=== PATIENT | female | born 1995 | race Caucasian/White ===

== ENCOUNTER → 2017-09-03 | Outpatient (CLI) | payer OTHER | END | disposition home or self-care (01) | LOC: C.LABSPEC 13:37 | PROVIDERS: ATTEND Obstetrics & Gynecology | DX: Z34.01 Encounter for supervision of normal first pregnancy, first trimester (principal) ==

== ENCOUNTER → 2017-09-09 | Outpatient (CLI) | payer OTHER ==
[2017-09-09 14:37] LABS: BASO % 0.2 %; BASO ABS # 0.02 K/uL (0-0.2); EOS % 0.1 %; EOS ABS # 0.01 K/uL (0-0.5); HEMATOCRIT 36.5 % (37-47); HEMOGLOBIN 12.7 g/dL (12.0-16.0); IG# 0.02 K/uL (0.00-0.02); LYMPH % 20.1 %; LYMPH ABS # 2.05 K/uL (1.2-3.4); MEAN CELL VOLUME 80.9 fL (80-100); MEAN CORPUSCULAR HEMOGLOBIN 28.2 pg (25-34); MEAN CORPUSCULAR HGB CONC 34.8 g/dl (32-36); MEAN PLATELET VOLUME 10.2 fL (7.4-10.4); MONO % 7.2 %; MONO ABS # 0.74 K/uL (0.11-0.59); NEUT % 72.2 %; NEUT ABS # 7.38 K/uL (1.4-6.5); PLATELET COUNT 344 K/uL (130-400); RED CELL DISTRIBUTION WIDTH CV 14.4 % (11.5-14.5); RED CELL DISTRIBUTION WIDTH SD 42.2 fL (36.4-46.3); WHITE BLOOD COUNT 10.22 K/uL (4.8-10.8)
== END | disposition home or self-care (01) ==
LOC: C.LAB1850 12:44
PROVIDERS: ATTEND Obstetrics & Gynecology
DX: Z34.01 Encounter for supervision of normal first pregnancy, first trimester (principal)

== ENCOUNTER → 2017-09-09 | Outpatient (CLI) | payer OTHER | END | disposition home or self-care (01) | LOC: C.PAPS 16:07 | PROVIDERS: ATTEND Obstetrics & Gynecology | DX: Z12.4 Encounter for screening for malignant neoplasm of cervix (principal) ==

== ENCOUNTER → 2017-10-30 | Outpatient (CLI) | payer OTHER, BC | END | disposition home or self-care (01) | LOC: C.LAB1850 12:06 | PROVIDERS: ATTEND Obstetrics & Gynecology | DX: Z34.02 Encounter for supervision of normal first pregnancy, second trimester (principal); Z3A.00 Weeks of gestation of pregnancy not specified ==

== ENCOUNTER → 2018-01-28 | Outpatient (CLI) | payer BC | END | disposition home or self-care (01) | LOC: C.LAB 17:18 | PROVIDERS: ATTEND Obstetrics & Gynecology | DX: Z34.03 Encounter for supervision of normal first pregnancy, third trimester (principal) ==

== ENCOUNTER 2022-07-04 17:34 | Inpatient (IN) ==
[2022-07-04] MEDS ORDERED: LIDOCAINE 1% LOCAL 20 ML VIAL INFIL PRN (17:56)
[2022-07-04] MEDS ORDERED: LACTATED RINGER'S 1,000 ML IV PRN (17:56)
[2022-07-04] MEDS ORDERED: OXYTOCIN 30 UNITS/500 ML BAG IV PRN ×2 (17:56→21:04)
--- NOTE | 2022-07-04 18:00 | History & Physical Report ---
Date of Service July 04, 2022 Assessment & Plan (1) GBS carrier: (2) with 39 completed weeks gestation: (3) Normal labor: Plan admit, gbs positive so will treat toshia. epidural now. fetus category one. anticipate . History of Present Illness Chief Complaint: contractions Primary Care Provider: Alexis Barahona PA-C Patient is a with iup at 39 2/7 weeks who presents to labor and delivery complaining of worsening contractions over the last 5 hours. no lof/vb. Good Fm and Delivery Plans COVID POSITIVE 04/20/22 WITH HOME TEST, PCR TO BE DONE (SX STARTED 04/17/22) PCR positive 04/23--test result on line and seen by physician--dein GBS on urine culture *treat in labor OB Labs: Blood Type B Positive 11/27/21 Antibody Screen NEGATIVE 11/27/21 Hemoglobin 11.7 g/dl (12.0-16.0) L 04/29/22 Hematocrit 34.6 % (34.1-44.9) 04/29/22 Mean Corpuscular Volume 82.7 fL (80-100) 11/27/21 Platelet Count 397 K/uL (130-400) 11/27/21 Rubella IgG Antibody Immune (Immune) 11/27/21 Rapid Plasma Reagin Nonreactive (Nonreactive) 11/27/21 Hepatitis B Surface Antigen NEG (NEG) 09/09/17 Hepatitis B Surface Antigen. NON-REACTIVE (NON-REACTIVE) 11/27/21 Hepatitis C Antibody (EIA) NON-REACTIVE (NON-REACTIVE) 11/27/21 HIV (1&2) Ab and P24 Ag, 4th Gener NEG (NEG) 09/09/17 HIV (1&2) Ag and Ab Confirmation NON-REACTIVE (NON-REACTIVE) 11/27/21 Glucose 1 Hour 50 gm Load 133 mg/dl (70-130) H 01/22/22 OB Optional Labs: Chlamydia trachomatis RNA NOT DETECTED (NOT DETECTED) 11/27/21 Neisseria gonorrhoeae RNA NOT DETECTED (NOT DETECTED) 11/27/21 Labs Reviewed: Declines cf/sma--mln Declines cfdna--mln gbs + Allergies Allergy/AdvReac Type Severity Reaction Status Date / Time No Known Allergies Allergy Verified 07/03/22 16:34 Home Medications Medication Instructions Recorded Confirmed Type prenat.vits,yaneth,zxh-xcrx-jdqji 1 tab PO DAILY 11/20/21 07/03/22 History Patient History Medical History History of chicken pox Iron deficiency anemia Surgical History History of repair of ACL S/P wisdom tooth extraction Family History Mother Breast cancer Denies family history of Ovarian cancer Colorectal cancer Social History Smoking Status: Never smoker Hx Alcohol Use: No Hx Substance Use: No Preferred Language: Swiss Communication Ability: Effective Beliefs That Will Affect Care: None marital status: marital status details: Jarad Vazquez (28) [phone] Current Living Situation: Spouse and Family Current Living Situation Comment: lives with spouse, son, dog, fish, cat-spouse changing litter current occupational status: employed 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 Date GA wks Lbr Lgth wt Sex Type del Anes Place Del Prov ? Com ment 04/16/18 40 7-13 M Epidural [facility] Dr. Hoyt No 11/21/20 Aborted-Spontaneous 06/26/21 Aborted-Spontaneous [employer] History noncontributory Physical Exam Constitutional: WD/WN, vitals as above Gastrointestinal (Abdomen): soft, gravid, nt Psychiatric: A+Ox3, euthymic affect Genitourinary: cx--6-7/100/-2, bulging bag toco--q3-5min efm--140s wtih mod variability, accels to 160s, no decels. Results & Data ([facility]) Vital Signs (Past 12 Hours) Vital Signs Temp Pulse Resp BP 07/04/22 17:51 71 137/82 07/04/22 17:49 22 07/04/22 17:49 36.5 C 22 07/04/22 17:48 73 145/92 H Code Status & VTE Plan VTE Prophylaxis Plan VTE Prophylaxis will be ordered: No Coding Level of Care Code None Diagnoses GBS carrier Z22.330 with 39 completed weeks gestation Z3A.39 Normal labor O80; Z37.9
[2022-07-04] MEDS ORDERED: PENICILLIN G POTASSIUM 6 MU in DEXTROSE 5% 250 ML IV STA (18:05)
[2022-07-04 18:30] LABS: Hematocrit (blood only) 41.6 % (34.1-44.9); Hemoglobin 14.6 g/dl (12.0-16.0); Mean Corpuscular Hemoglobin 30.8 pg (25.0-34.0); Mean Corpuscular Hgb Conc 35.1 g/dL (32.0-36.0); Mean Corpuscular Volume 87.8 fL (80.0-100.0); Mean Platelet Volume 12.3 fL (9.4-12.3); Platelet Count 201 K/uL (130-400); RDW Coefficient of Variation 13.6 % (11.5-14.5); RDW Standard Deviation 43.8 fL (36.4-46.3); Red Blood Count 4.74 M/uL (3.93-5.22); White Blood Count 10.53 K/ul (4.8-10.8)
[2022-07-04] MEDS ORDERED: BUPIVACAINE 0.25% 30 ML VIAL ONE (18:32)
[2022-07-04] MEDS ORDERED: fentaNYL citrate 100 MCG/2 ML VIAL ONE (18:32)
[2022-07-04] MEDS ORDERED: SODIUM CHLORIDE 0.9% INJ 10 ML VIAL ONE (18:32)
[2022-07-04] MEDS ORDERED: LIDOCAINE 2%/EPINEPHRINE 1:200,000 20 ML SDV ONE (18:32)
[2022-07-04] MEDS ORDERED: ePHEDrine sulfate 50 MG/ML AMP ONE (18:32)
[2022-07-04] MEDS ORDERED: fentaNYL 2MCG/ML ROPIVACAINE 1.25MG/ML 100 ML BAG EPI ONE (18:33)
[2022-07-04] MEDS ORDERED: NALOXONE HCL 0.4 MG/1 ML VIAL/CARP IV PRN (19:15)
[2022-07-04] MEDS ORDERED: NALBUPHINE HCL INJ 10 MG/ML AMP IV PRN (19:15)
[2022-07-04] MEDS ORDERED: PROMETHAZINE HCL 6.25 MG in SODIUM CHLORIDE 0.9% 50 ML IV PRN (19:15)
[2022-07-04] MEDS ORDERED: ONDANSETRON INJ 2 MG/ML 2 ML VIAL IV PRN (19:15)
[2022-07-04] MEDS ORDERED: fentaNYL 2MCG/ML ROPIVACAINE 1.25MG/ML 100 ML BAG EPI PRN (19:15)
[2022-07-04] MEDS ORDERED: diphenhydrAMINE 50 MG/ML VIAL IV PRN (19:15)
[2022-07-04] MEDS ORDERED: ePHEDrine sulfate 50 MG/ML AMP IV PRN (19:15)
[2022-07-04] MEDS ORDERED: NALOXONE HCL 1 MG in SODIUM CHLORIDE 0.9% 1000ML 1,000 ML IV PRN (19:15)
--- NOTE | 2022-07-04 19:15 | Anesthesiology Consultation ---
Date of Service July 04, 2022 Assessment & Plan Chart Review Chart Review: Patient NOT seen in Pre Admission Testing and Acceptable Risk for Labor Epidural Consults Requested none ASA ASA2 Proposed Anesthesia Anesthesia Type: Labor Epidural Risk / Benefits Reviewed With: PT / POA / Parent / Guardian, Accepts Plan and Informed Consent Obtained History Height/Weight Height: 5 ft 7 in Weight: 104.901 kg Allergies Allergy/AdvReac Type Severity Reaction Status Date / Time No Known Allergies Allergy Verified 07/03/22 16:34 Medications Home Medications Medication Instructions Recorded Confirmed Last Taken prenat.vits,yaneth,sij-ivmn-oxzxt 1 tab PO DAILY 11/20/21 07/03/22 Unknown Active Medications Generic Name Dose Route Start Last Admin Trade Name Freq PRN Reason Stop Dose Admin Lactated Ringer's 1,000 mls @ 125 mls/hr 07/04/22 17:56 07/04/22 18:11 Lr IV 07/06/22 17:55 999 mls/hr .Q8H PRN Administration L&D Protocol Protocol Past Medical History Medical History History of chicken pox Iron deficiency anemia Exercise / Class Metabolic Activity II 4-5 Yardwork/Stairs/Walk up hill Past Family History Family History Mother Breast cancer Denies family history of Ovarian cancer Colorectal cancer Past Surgical History Surgical History History of repair of ACL S/P wisdom tooth extraction Past Anesthesia History No Hx of Anesthesia Complications and No Family Hx of Anesthesia Complications History of PONV No Hx of PONV and No Hx of Motion Sickness Social History Smoking Status: Never smoker Hx Alcohol Use: No Hx Substance Use: No substance use type: does not use Physical Exam Vital Signs Last Vital Signs Temp 36.5 C 07/04/22 18:13 Pulse 80 07/04/22 19:13 Resp 22 07/04/22 18:13 BP 135/63 07/04/22 19:09 Pulse Ox 92 07/04/22 19:13 ENMT Mouth: no dentition abnormality Thyromental Distance: > or= 3.5 Finger Breadths Mallampati Class: II Neck normal visual inspection Respiratory normal respiratory effort Auscultation: lungs clear to auscultation bilaterally Cardiovascular Rate/Rhythm: regular rate and regular rhythm Psychiatric Orientation: alert Testing Laboratory Results 07/04/22 18:18
--- NOTE | 2022-07-04 20:47 | Labor Progress Brief Note ---
Date of Service July 04, 2022 Subjective comfortable after epidural. legs are totally numb Assessment & Plan (1) Normal labor: (2) with 39 completed weeks gestation: (3) GBS carrier: Plan start second stage. fetus overall reassuring. anticipate . Admission and Anticipated Discharge Date Admission Date: July 04, 2022 Physical Exam Physical Exam: c/c/+1 arom--clear toco--q2-3min efm--150s with mod variability, small accels, no decels after arom, variables with contractions. Results & Data ([facility]) Vital Signs (Past 12 Hours) Vital Signs Temp Pulse Resp BP Pulse Ox 07/04/22 19:24 36.5 C 18 07/04/22 18:13 36.5 C 22 07/04/22 20:43 99 07/04/22 20:43 99 H 07/04/22 20:38 99 07/04/22 20:38 78 07/04/22 20:37 91 07/04/22 20:37 74 07/04/22 20:36 71 07/04/22 20:36 108/58 L 07/04/22 20:33 95 07/04/22 20:33 72 07/04/22 20:28 99 07/04/22 20:28 70 07/04/22 20:23 99 07/04/22 20:23 72 07/04/22 20:21 71 07/04/22 20:21 102/54 L 07/04/22 20:18 99 07/04/22 20:18 76 07/04/22 20:13 97 07/04/22 20:13 73 07/04/22 20:13 81 07/04/22 20:13 104/65 07/04/22 20:08 98 07/04/22 20:08 76 07/04/22 20:03 98 07/04/22 20:03 73 07/04/22 20:01 93 07/04/22 20:01 86 07/04/22 19:58 97 07/04/22 19:58 96 H 07/04/22 19:53 99 07/04/22 19:53 97 H 07/04/22 19:48 96 07/04/22 19:48 123 H 07/04/22 19:43 99 07/04/22 19:43 77 07/04/22 19:38 98 07/04/22 19:38 85 07/04/22 19:35 78 07/04/22 19:35 106/62 07/04/22 19:33 99 07/04/22 19:33 70 07/04/22 19:28 98 07/04/22 19:28 87 07/04/22 19:28 106/54 L 07/04/22 19:26 91 07/04/22 19:26 81 07/04/22 19:23 99 07/04/22 19:23 74 07/04/22 19:22 74 07/04/22 19:22 105/57 L 07/04/22 19:18 100 07/04/22 19:18 71 07/04/22 19:16 75 07/04/22 19:16 123/66 07/04/22 19:13 98 07/04/22 19:13 90 07/04/22 19:13 92 07/04/22 19:13 80 07/04/22 19:08 100 07/04/22 19:08 76 07/04/22 19:09 84 07/04/22 19:09 135/63 07/04/22 19:07 73 07/04/22 19:07 169/91 H 07/04/22 19:03 98 07/04/22 19:03 69 07/04/22 19:04 78 07/04/22 19:04 134/86 07/04/22 18:58 98 07/04/22 18:58 72 07/04/22 18:53 98 07/04/22 18:53 75 07/04/22 18:48 98 07/04/22 18:48 75 07/04/22 18:43 98 07/04/22 18:43 75 07/04/22 18:38 97 07/04/22 18:38 72 07/04/22 17:51 71 137/82 07/04/22 17:49 22 07/04/22 17:49 36.5 C 22 07/04/22 17:48 73 145/92 H Coding Level of Care Code None Diagnoses Normal labor O80; Z37.9 with 39 completed weeks gestation Z3A.39 GBS carrier Z22.330
[2022-07-04] MEDS ORDERED: BENZOCAINE 20% AER SPR 82.5 GM CAN EXT PRN (21:04)
[2022-07-04] MEDS ORDERED: bisacodyL 10 MG SUPP PR PRN (21:04)
[2022-07-04] MEDS ORDERED: DIPHTHERIA/TETANUS/PERTUSSIS 0.5mL SYR/VIAL (Age 7+yrs) IM ONE (21:04)
[2022-07-04] MEDS ORDERED: HYDROCORTISONE ACETATE 25 MG SUPP PR PRN (21:04)
[2022-07-04] MEDS ORDERED: oxyCODONE/ACETAMINOPHEN 5mg/325mg TAB PO PRN (21:04)
[2022-07-04] MEDS ORDERED: ACETAMINOPHEN 325 MG TAB PO PRN (21:04)
[2022-07-04] MEDS ORDERED: PENICILLIN G POTASSIUM 3 MU in DEXTROSE 5% 100 ML IV PRN (21:05)
--- NOTE | 2022-07-04 21:09 | Delivery Summary ---
Vaginal Delivery Summary Date of Service July 04, 2022 Vaginal Delivery Summary [facility] Pre-operative Diagnosis: at 39 weeks labor Post-operative Diagnosis: same Procedure: epidural arom EBL: 300cc Anesthesia: epidural Procedure: Patient presented to labor and delivery in active labor 6-7cm Underwent epidural. Rechecked after epidural and c/c/+1. arom for clear fluid. Was going to wait 30 min to push but baby having early /variable. Gave one very small push and baby crowned. I was sitting at the desk and while walking into the room, the head delivered. while I was getting my gloves on, the rest of the body was gently delivered with the nurse providing guidance into the bed. The nose and mouth were bulb suctioned. The baby was vigorous and placed on the maternal chest. Cord was clamped and cut at one minute of life. Cord blood obtained. Placenta delivered into the vagina and the cord avulsed. I reached my hand into the vagina and delivered the rest of the placenta. It was intact. Cervix/sulci/rectum/perineum were intact. Hemostasis obtained with dilute pitocin and fundal massage. Apgars were 8/9. Mother and baby doing well at the end of the delivery. [facility] Vaginal Delivery Charge Delivery Type Details: [facility]
[2022-07-05 06:24] LABS: Hematocrit (blood only) 35.7 % (34.1-44.9); Hemoglobin 12.6 g/dl (12.0-16.0)
--- NOTE | 2022-07-05 07:06 | Obstetrical Progress Note ---
Date of Service <Sofia Hirsch MD - Last Filed: 07/05/22 07:06> July 05, 2022 Assessment & Plan <Sofia Hirsch MD - Last Filed: 07/05/22 07:06> (1) care following vaginal delivery: Patient is a with iup at 39 2/7 weeks who presented with contractions now PPD1. GBS pos, Rh pos, RI. ABX given during delivery but likely not adequately treated due to timing of delivery. Tolerating PO. Encourage ambulation. Satisfactory post progress. <Sun Lopez MD, FACOG - Last Filed: 07/05/22 07:30> (1) care following vaginal delivery: Subjective <Sofia Hirsch MD - Last Filed: 07/05/22 07:06> Ambulation: ambulating normally Voiding: no voiding problems Passing Gas:: Yes Diet Tolerance:: regular diet Lochia:: Small Feeding Type:: breast feeding Physical Exam <Sofia Hirsch MD - Last Filed: 07/05/22 07:06> Constitutional WD/WN, vitals as above Respiratory no increased work of breathing Cardiovascular Extremities: no calf tenderness clinically well perfused Psychiatric A+Ox3, euthymic affect Genitourinary OB Exam Abdomen: + fundal height (@ the level of the umbilicus) Fundus: + firm Results & Data ([facility]) <Sofia Hirsch MD - Last Filed: 07/05/22 07:06> Vital Signs (Past 12 Hours) Vital Signs Temp Pulse Pulse Resp BP BP Pulse Ox 07/05/22 03:50 36.7 C 65 18 128/92 99 07/04/22 23:56 07/04/22 23:56 36.8 C 69 18 125/88 94 07/04/22 22:30 18 07/04/22 21:30 18 07/04/22 23:00 36.6 C 18 07/04/22 22:00 18 07/04/22 21:45 20 07/04/22 21:15 18 07/04/22 21:00 18 07/04/22 19:24 36.5 C 18 07/04/22 23:16 66 07/04/22 23:16 120/66 07/04/22 23:01 69 07/04/22 23:01 128/76 07/04/22 22:46 70 07/04/22 22:46 122/70 07/04/22 22:30 86 07/04/22 22:30 126/75 07/04/22 22:28 96 07/04/22 22:28 75 07/04/22 22:23 96 07/04/22 22:23 69 07/04/22 22:18 96 07/04/22 22:18 69 07/04/22 22:16 70 07/04/22 22:16 124/72 07/04/22 22:13 96 07/04/22 22:13 70 07/04/22 22:08 96 07/04/22 22:08 77 07/04/22 22:03 97 07/04/22 22:03 79 07/04/22 22:00 72 07/04/22 22:00 138/81 07/04/22 21:58 98 07/04/22 21:58 75 07/04/22 21:53 98 07/04/22 21:53 73 07/04/22 21:48 98 07/04/22 21:48 78 07/04/22 21:46 74 07/04/22 21:46 129/74 07/04/22 21:43 100 07/04/22 21:43 83 07/04/22 21:43 93 07/04/22 21:43 85 07/04/22 21:38 97 07/04/22 21:38 90 07/04/22 21:33 98 07/04/22 21:33 76 07/04/22 21:31 92 07/04/22 21:31 80 07/04/22 21:31 78 07/04/22 21:31 140/78 07/04/22 21:28 97 07/04/22 21:28 88 07/04/22 21:23 97 07/04/22 21:23 83 07/04/22 21:18 97 07/04/22 21:18 90 07/04/22 21:16 94 07/04/22 21:16 104 H 07/04/22 21:15 100 H 07/04/22 21:15 137/73 07/04/22 21:13 97 07/04/22 21:13 105 H 07/04/22 21:08 98 07/04/22 21:08 98 H 07/04/22 21:03 97 07/04/22 21:03 105 H 07/04/22 21:00 104 H 07/04/22 21:00 135/70 07/04/22 20:58 96 07/04/22 20:58 104 H 07/04/22 20:53 96 07/04/22 20:53 90 07/04/22 20:51 102 H 07/04/22 20:51 135/73 07/04/22 20:48 98 07/04/22 20:48 100 H 07/04/22 20:46 91 07/04/22 20:46 102 H 07/04/22 20:43 99 07/04/22 20:43 99 H 07/04/22 20:38 99 07/04/22 20:38 78 07/04/22 20:37 91 07/04/22 20:37 74 07/04/22 20:36 71 07/04/22 20:36 108/58 L 07/04/22 20:33 95 07/04/22 20:33 72 07/04/22 20:28 99 07/04/22 20:28 70 07/04/22 20:23 99 07/04/22 20:23 72 07/04/22 20:21 71 07/04/22 20:21 102/54 L 07/04/22 20:18 99 07/04/22 20:18 76 07/04/22 20:13 97 07/04/22 20:13 73 07/04/22 20:13 81 07/04/22 20:13 104/65 07/04/22 20:08 98 07/04/22 20:08 76 07/04/22 20:03 98 07/04/22 20:03 73 07/04/22 20:01 93 07/04/22 20:01 86 07/04/22 19:58 97 07/04/22 19:58 96 H 07/04/22 19:53 99 07/04/22 19:53 97 H 07/04/22 19:48 96 07/04/22 19:48 123 H 07/04/22 19:43 99 07/04/22 19:43 77 07/04/22 19:38 98 07/04/22 19:38 85 07/04/22 19:35 78 07/04/22 19:35 106/62 07/04/22 19:33 99 07/04/22 19:33 70 07/04/22 19:28 98 07/04/22 19:28 87 07/04/22 19:28 106/54 L 07/04/22 19:26 91 07/04/22 19:26 81 07/04/22 19:23 99 07/04/22 19:23 74 07/04/22 19:22 74 07/04/22 19:22 105/57 L 07/04/22 19:18 100 07/04/22 19:18 71 07/04/22 19:16 75 07/04/22 19:16 123/66 07/04/22 19:13 98 07/04/22 19:13 90 07/04/22 19:13 92 07/04/22 19:13 80 07/04/22 19:08 100 07/04/22 19:08 76 07/04/22 19:09 84 07/04/22 19:09 135/63 07/04/22 19:07 73 07/04/22 19:07 169/91 H 07/04/22 19:04 78 07/04/22 19:04 134/86 O2 Del Method 07/05/22 03:50 Room Air 07/04/22 23:56 Room Air 07/04/22 23:56 Room Air 07/04/22 22:30 07/04/22 21:30 07/04/22 23:00 07/04/22 22:00 07/04/22 21:45 07/04/22 21:15 07/04/22 21:00 07/04/22 19:24 07/04/22 23:16 07/04/22 23:16 07/04/22 23:01 07/04/22 23:01 07/04/22 22:46 07/04/22 22:46 07/04/22 22:30 07/04/22 22:30 07/04/22 22:28 07/04/22 22:28 07/04/22 22:23 07/04/22 22:23 07/04/22 22:18 07/04/22 22:18 07/04/22 22:16 07/04/22 22:16 07/04/22 22:13 07/04/22 22:13 07/04/22 22:08 07/04/22 22:08 07/04/22 22:03 07/04/22 22:03 07/04/22 22:00 07/04/22 22:00 07/04/22 21:58 07/04/22 21:58 07/04/22 21:53 07/04/22 21:53 07/04/22 21:48 07/04/22 21:48 07/04/22 21:46 07/04/22 21:46 07/04/22 21:43 07/04/22 21:43 07/04/22 21:43 07/04/22 21:43 07/04/22 21:38 07/04/22 21:38 07/04/22 21:33 07/04/22 21:33 07/04/22 21:31 07/04/22 21:31 07/04/22 21:31 07/04/22 21:31 07/04/22 21:28 07/04/22 21:28 07/04/22 21:23 07/04/22 21:23 07/04/22 21:18 07/04/22 21:18 07/04/22 21:16 07/04/22 21:16 07/04/22 21:15 07/04/22 21:15 07/04/22 21:13 07/04/22 21:13 07/04/22 21:08 07/04/22 21:08 07/04/22 21:03 07/04/22 21:03 07/04/22 21:00 07/04/22 21:00 07/04/22 20:58 07/04/22 20:58 07/04/22 20:53 07/04/22 20:53 07/04/22 20:51 07/04/22 20:51 07/04/22 20:48 07/04/22 20:48 07/04/22 20:46 07/04/22 20:46 07/04/22 20:43 07/04/22 20:43 07/04/22 20:38 07/04/22 20:38 07/04/22 20:37 07/04/22 20:37 07/04/22 20:36 07/04/22 20:36 07/04/22 20:33 07/04/22 20:33 07/04/22 20:28 07/04/22 20:28 07/04/22 20:23 07/04/22 20:23 07/04/22 20:21 07/04/22 20:21 07/04/22 20:18 07/04/22 20:18 07/04/22 20:13 07/04/22 20:13 07/04/22 20:13 07/04/22 20:13 07/04/22 20:08 07/04/22 20:08 07/04/22 20:03 07/04/22 20:03 07/04/22 20:01 07/04/22 20:01 07/04/22 19:58 07/04/22 19:58 07/04/22 19:53 07/04/22 19:53 07/04/22 19:48 07/04/22 19:48 07/04/22 19:43 07/04/22 19:43 07/04/22 19:38 07/04/22 19:38 07/04/22 19:35 07/04/22 19:35 07/04/22 19:33 07/04/22 19:33 07/04/22 19:28 07/04/22 19:28 07/04/22 19:28 07/04/22 19:26 07/04/22 19:26 07/04/22 19:23 07/04/22 19:23 07/04/22 19:22 07/04/22 19:22 07/04/22 19:18 07/04/22 19:18 07/04/22 19:16 07/04/22 19:16 07/04/22 19:13 07/04/22 19:13 07/04/22 19:13 07/04/22 19:13 07/04/22 19:08 07/04/22 19:08 07/04/22 19:09 07/04/22 19:09 07/04/22 19:07 07/04/22 19:07 07/04/22 19:04 01/20/23 19:04 <Sun Lopez MD, FACOG - Last Filed: 07/05/22 07:30> Co-Signing Physician Notes Resident Physician Supervision Note: I interviewed and examined the patient. Discussed with Dr. Hirsch and agree with findings and plan as documented in the note. Any exceptions or clarifications are listed here: Doing well, routine care. Documented By: Sun Lopez MD, FACOG Resident Activity Tracking <Sofia Hirsch MD - Last Filed: 07/05/22 07:06> Resident Involvement: Resident Care Provided Care Provided: OB Delivery
[2022-07-05] MEDS: DOCUSATE SODIUM 100 MG CAP PO SCH ×2 (08:24→20:09)
[2022-07-05] MEDS: PRENATAL VITAMIN 1 TAB PO SCH (08:24)
--- NOTE | 2022-07-05 10:43 | Anesthesia Procedure Note ---
Date of Service July 05, 2022 Anesthesia Post Epidural Note Vital Signs Vital Signs: Temp Pulse Resp BP Pulse Ox O2 Del Method 36.7 C 65 18 128/92 99 07/05/22 03:50 07/05/22 03:50 07/05/22 03:50 07/05/22 03:50 07/05/22 03:50 07/05/22 03:50 Pain Intensity Abdomen: Pain Intensity: 3 Notes Mental Status: alert / awake / arousable Nausea / Vomiting: adequately controlled Pain: adequately controlled Airway Patency, RR, SpO2: stable & adequate BP & HR: stable & adequate Hydration State: stable & adequate Neuraxial Anesthesia: was administered and sensory block is resolving Anesthetic Complications: no major complications apparent and Pt Satisfied with anesthetic care Epidural: Removed without complications and With tip intact
[2022-07-05] MEDS: IBUPROFEN 600 MG TAB PO PRN ×2 (15:33→20:09)
[2022-07-05] MEDS ORDERED: bisacodyL 5 MG TABEC PO SCH (20:00)
--- NOTE | 2022-07-06 07:46 | Obstetrical Progress Note ---
Date of Service July 06, 2022 Assessment & Plan (1) care following vaginal delivery: PPD#2 doing well. Desires DC home. . Reviewed DC instructions, followup 6w . Subjective Ambulation: ambulating normally Voiding: no voiding problems Diet Tolerance:: regular diet Lochia:: Moderate Review of Systems All systems reviewed & are unremarkable except as noted in HPI & below Physical Exam Constitutional WD/WN, vitals as above no acute distress Respiratory normal respiratory effort Cardiovascular Rate/Rhythm: regular rate and regular rhythm Gastrointestinal (Abdomen) Inspection/Auscultation: abdomen normal to inspection; abdomen not distended Percussion/Palpation: abdomen soft Genitourinary OB Exam Abdomen: + fundal height Fundus: + firm; not tender Results & Data ([facility]) Vital Signs (Past 12 Hours) Vital Signs Temp Pulse Pulse Resp BP Pulse Ox O2 Del Method 07/06/22 07:23 36.9 C 61 18 128/82 07/05/22 23:50 36.4 C L 61 18 143/90 H 96 Room Air 07/05/22 20:12 36.7 C 68 18 148/90 H 97 Room Air
[2022-07-06] MEDS: PRENATAL VITAMIN 1 TAB PO SCH (08:21)
[2022-07-06] MEDS: DOCUSATE SODIUM 100 MG CAP PO SCH (08:21)
== END 2022-07-06 10:55 | disposition home or self-care (01) | DRG 807 ==
LOC: OPB 17:34 → 4S1 17:36 → 4E2 23:49